=== PATIENT | female | born 1990 | race American Indian/Alaskan Native ===

== ENCOUNTER 2019-01-20 20:35 | Emergency (ER) | payer SELFPAY ==
--- NOTE | 2019-01-20 20:41 | Emergency Department Report ---
Blank Doc - Documentation Documentation: 28-year-old female that presents with n/v and abdominal pain. This initial assessment/diagnostic orders/clinical plan/treatment(s) is/are subject to change based on patient's health status, clinical progression and re- assessment by fellow clinical providers in the ED. Further treatment and workup at subsequent clinical providers discretion. Patient/guardians urged not to elope from the ED as their condition may be serious if not clinically assessed and managed. Initial orders include: 1- Patient sent to [facility] for further evaluation and treatment 2- labs 3- UA
[2019-01-20 21:32] LABS: Basophils % (Auto) 0.3 % (0.0-1.8); Eosinophils # (Auto) 0.1 K/mm3 (0.0-0.4); Eosinophils % (Auto) 2.8 % (0.0-4.3); Hemoglobin 11.3 gm/dl (10.1-14.3); Lymphocytes % (Auto) 20.2 % (13.4-35.0); Mean Corpuscular HGB Conc 32 % (30-34); Mean Corpuscular Volume 75 fl (79-97); Monocytes # (Auto) 0.6 K/mm3 (0.0-0.8); Monocytes % (Auto) 11.8 % (0.0-7.3); Platelet Count 247 K/mm3 (140-440); Red Blood Count 4.67 M/mm3 (3.65-5.03); Red Cell Distribution Width 15.1 % (13.2-15.2)
[2019-01-20 21:48] LABS: Alanine Aminotransferase 30 units/L (7-56); Albumin 3.6 g/dL (3.9-5); BUN/Creatinine Ratio 12; Blood Urea Nitrogen 7 mg/dL (7-17); Calcium 8.9 mg/dL (8.4-10.2); Hemolysis Index 8
[2019-01-20] MEDS ORDERED: NACL 0.9% 1000 ML 1,000 ML IV ONE (22:38)
[2019-01-20] MEDS ORDERED: REGLAN IV ONE (22:39)
[2019-01-20] MEDS ORDERED: BENADRYL IV ONE (22:39)
--- NOTE | 2019-01-20 23:46 | Emergency Department Report ---
ED N/V/D HPI - General Chief complaint: Abdominal Pain Stated complaint: ABDOMINAL PAIN Time Seen by Provider: 01/20/19 20:40 Source: patient Mode of arrival: Ambulatory Limitations: No Limitations - History of Present Illness Initial comments: Patient is a 28-year-old female presents the emergency room with complaints of nausea, vomiting, diarrhea that began 5 days ago. She states she has lower abdominal cramping. Patient states that she has not been able to tolerate much by mouth intake. She denies any fever, urinary symptoms, vaginal discharge, vaginal bleeding, recent camping, recent antibiotics, sick contacts. Patient states her last menstrual cycle was December 06 and she is not sure if she is . - Related Data Previous Rx's Medication Instructions Recorded Last Taken Type Clindamycin [Clindamycin CAP] 300 mg PO Q8H #21 cap 03/05/18 Unknown Rx Naproxen [Naprosyn] 500 mg PO BID #12 tablet 03/05/18 Unknown Rx traMADol [Ultram 50 MG tab] 50 mg PO Q6HR PRN #8 tablet 03/05/18 Unknown Rx Ondansetron [Zofran Odt] 4 mg PO Q8HR PRN #7 tab.rapdis 01/21/19 Unknown Rx cephALEXin [Keflex] 500 mg PO BID 7 Days #14 cap 01/21/19 Unknown Rx Allergies Allergy/AdvReac Type Severity Reaction Status Date / Time metoclopramide [From Reglan] AdvReac Unknown Verified 01/21/19 00:15 ED Review of Systems ROS: Stated complaint: ABDOMINAL PAIN Other details as noted in HPI Comment: All other systems reviewed and negative ED Past Medical Hx - Social History Smoking Status: Never Smoker Substance Use Type: None - Medications Home Medications: Home Medications Medication Instructions Recorded Confirmed Last Taken Type Clindamycin [Clindamycin CAP] 300 mg PO Q8H #21 cap 03/05/18 Unknown Rx Naproxen [Naprosyn] 500 mg PO BID #12 tablet 03/05/18 Unknown Rx traMADol [Ultram 50 MG tab] 50 mg PO Q6HR PRN #8 tablet 03/05/18 Unknown Rx Ondansetron [Zofran Odt] 4 mg PO Q8HR PRN #7 tab.rapdis 01/21/19 Unknown Rx cephALEXin [Keflex] 500 mg PO BID 7 Days #14 cap 01/21/19 Unknown Rx ED Physical Exam - General Limitations: No Limitations General appearance: alert, in no apparent distress - Head Head exam: Present: atraumatic, normocephalic - Eye Eye exam: Present: normal appearance - ENT ENT exam: Present: mucous membranes moist - Respiratory Respiratory exam: Present: normal lung sounds bilaterally. Absent: respiratory distress, wheezes, rales, rhonchi, stridor, chest wall tenderness, accessory muscle use, decreased breath sounds, prolonged expiratory - Cardiovascular Cardiovascular Exam: Present: regular rate, normal rhythm, normal heart sounds. Absent: systolic murmur, diastolic murmur, rubs, gallop - GI/Abdominal GI/Abdominal exam: Present: soft, normal bowel sounds. Absent: distended, tenderness, guarding, rebound, rigid - Back Exam Back exam: Absent: CVA tenderness (R), CVA tenderness (L) - Neurological Exam Neurological exam: Present: alert, oriented X3 - Psychiatric Psychiatric exam: Present: normal affect, normal mood - Skin Skin exam: Present: warm, dry, intact ED Course Vital Signs 01/20/19 01/21/19 20:40 02:45 Temperature 98.8 F Pulse Rate 88 68 Respiratory 18 16 Rate Blood Pressure 120/79 [Right] O2 Sat by Pulse 97 100 Oximetry ED Medical Decision Making - Lab Data Result diagrams: 01/20/19 21:15 01/20/19 21:15 Lab Results 01/20/19 01/20/19 01/20/19 Range/Units 21:15 21:15 21:15 WBC 4.9 (4.5-11.0) K/mm3 RBC 4.67 (3.65-5.03) M/mm3 Hgb 11.3 (10.1-14.3) gm/dl Hct 35.0 (30.3-42.9) % MCV 75 L (79-97) fl MCH 24 L (28-32) pg MCHC 32 (30-34) % RDW 15.1 (13.2-15.2) % Plt Count 247 (140-440) K/mm3 Lymph % (Auto) 20.2 (13.4-35.0) % [place] % (Auto) 11.8 H (0.0-7.3) % Eos % (Auto) 2.8 (0.0-4.3) % Baso % (Auto) 0.3 (0.0-1.8) % Lymph # 1.0 L (1.2-5.4) K/mm3 [place] # 0.6 (0.0-0.8) K/mm3 Eos # 0.1 (0.0-0.4) K/mm3 Baso # 0.0 (0.0-0.1) K/mm3 Seg Neutrophils % 64.9 (40.0-70.0) % Seg Neutrophils # 3.2 (1.8-7.7) K/mm3 Sodium 137 (137-145) mmol/L Potassium 4.4 (3.6-5.0) mmol/L Chloride 102.2 (98-107) mmol/L Carbon Dioxide 23 (22-30) mmol/L Anion Gap 16 mmol/L BUN 7 (7-17) mg/dL Creatinine 0.6 L (0.7-1.2) mg/dL Estimated GFR > 60 ml/min BUN/Creatinine Ratio 12 % Glucose 95 (65-100) mg/dL Calcium 8.9 (8.4-10.2) mg/dL Total Bilirubin 0.20 (0.1-1.2) mg/dL AST 29 (5-40) units/L ALT 30 (7-56) units/L Alkaline Phosphatase 112 (35-129) units/L Total Protein 6.9 (6.3-8.2) g/dL Albumin 3.6 L (3.9-5) g/dL Albumin/Globulin Ratio 1.1 % Lipase 16 (13-60) units/L HCG, Qual Positive (Negative) HCG, Quant (0-4) mIU/mL Urine Color (Yellow) Urine Turbidity (Clear) Urine pH (5.0-7.0) Ur Specific [place] (1.003-1.030) Urine Protein (Negative) mg/dL Urine Glucose (UA) (Negative) mg/dL Urine Ketones (Negative) mg/dL Urine Blood (Negative) Urine Nitrite (Negative) Urine Bilirubin (Negative) Urine Urobilinogen (<2.0) mg/dL Ur Leukocyte Esterase (Negative) Urine WBC (Auto) (0.0-6.0) /HPF Urine RBC (Auto) (0.0-6.0) /HPF U Epithel Cells (Auto) (0-13.0) /HPF Urine Bacteria (Auto) (Negative) /HPF Urine Mucus /HPF 01/20/19 01/21/19 Range/Units 21:15 01:14 WBC (4.5-11.0) K/mm3 RBC (3.65-5.03) M/mm3 Hgb (10.1-14.3) gm/dl Hct (30.3-42.9) % MCV (79-97) fl MCH (28-32) pg MCHC (30-34) % RDW (13.2-15.2) % Plt Count (140-440) K/mm3 Lymph % (Auto) (13.4-35.0) % [place] % (Auto) (0.0-7.3) % Eos % (Auto) (0.0-4.3) % Baso % (Auto) (0.0-1.8) % Lymph # (1.2-5.4) K/mm3 [place] # (0.0-0.8) K/mm3 Eos # (0.0-0.4) K/mm3 Baso # (0.0-0.1) K/mm3 Seg Neutrophils % (40.0-70.0) % Seg Neutrophils # (1.8-7.7) K/mm3 Sodium (137-145) mmol/L Potassium (3.6-5.0) mmol/L Chloride (98-107) mmol/L Carbon Dioxide (22-30) mmol/L Anion Gap mmol/L BUN (7-17) mg/dL Creatinine (0.7-1.2) mg/dL Estimated GFR ml/min BUN/Creatinine Ratio % Glucose (65-100) mg/dL Calcium (8.4-10.2) mg/dL Total Bilirubin (0.1-1.2) mg/dL AST (5-40) units/L ALT (7-56) units/L Alkaline Phosphatase (35-129) units/L Total Protein (6.3-8.2) g/dL Albumin (3.9-5) g/dL Albumin/Globulin Ratio % Lipase (13-60) units/L HCG, Qual (Negative) HCG, Quant 34342 H (0-4) mIU/mL Urine Color Yellow (Yellow) Urine Turbidity Cloudy (Clear) Urine pH 7.0 (5.0-7.0) Ur Specific [place] 1.021 (1.003-1.030) Urine Protein 30 mg/dl (Negative) mg/dL Urine Glucose (UA) Neg (Negative) mg/dL Urine Ketones Neg (Negative) mg/dL Urine Blood Neg (Negative) Urine Nitrite Neg (Negative) Urine Bilirubin Neg (Negative) Urine Urobilinogen < 2.0 (<2.0) mg/dL Ur Leukocyte Esterase Lg (Negative) Urine WBC (Auto) 65.0 H (0.0-6.0) /HPF Urine RBC (Auto) 9.0 (0.0-6.0) /HPF U Epithel Cells (Auto) 12.0 (0-13.0) /HPF Urine Bacteria (Auto) 1+ (Negative) /HPF Urine Mucus 3+ /HPF - Radiology Data Radiology results: report reviewed ULTRASOUND OBSTETRIC transabdominal Indication: preg, abd pain Findings: The patient declined endovaginal imaging. Intrauterine is identified. A yolk sac is seen in the gestational sac [place]-rump length = 0.51 cm = 6 weeks, 2 day(s). No heartbeat can be identified The ovaries are normal. There is no free fluid. Impression: Intrauterine is identified. No heartbeat could be identified on this transabdominal imaging.. This could represent demise. The patient declined endovaginal imaging which could allow for better evaluation of this very tiny fetus. In the absence of this, close short-term follow-up is recommended to better evaluate viability. Signer Name: Ranjith Cano MD Signed: 01/21/2019 12:21 AM Workstation Name: [id number] Transcribed By: SS Dictated By: Ranjith Cano MD Electronically Authenticated By: Ranjith Cano MD Signed Date/Time: 01/21/19 0021 - Medical Decision Making Patient is a 28-year-old female presents the emergency room with complaints of nausea, vomiting, diarrhea that began 5 days ago. She states she has lower abdominal cramping. Patient states that she has not been able to tolerate much by mouth intake. She denies any fever, urinary symptoms, vaginal discharge, vaginal bleeding, recent camping, recent antibiotics, sick contacts. Patient states her last menstrual cycle was December 06 and she is not sure if she is . Vitals are normal. no abd tenderness on exam. cbc and bmp are normal. electrolytes/[place] [address]. UA shows evidence of UTI, given 1g of ceftriaxone. pt given 1L of fluids, reglan/benadryl, and zofran and Nausea completely resolved and pt was able to tolerate PO intake while in the ED. pt given prescription for keflex. OB US shows: Intrauterine is identified. No heartbeat could be identified on this downing sabdominal imaging.. This could represent demise. The patient declined endovaginal imaging which could allow for better evaluation of this very tiny fetus. In the absence of this, close short-term follow-up is recommended to better evaluate viability. discussed results with pt and given US report. Advised patient to please take medication as prescribed. drink plenty of fluids. Please begin taking a daily vitamin [id number]. Follow up with an [facility] in the next 2-3 days. Return to the emergency room for any new or worsening symptoms. - Differential Diagnosis UTI, IUP, threatened miscarriage, ectopic, ovarian cyst Critical care attestation.: If time is entered above; I have spent that time in minutes in the direct care of this critically ill patient, excluding procedure time. ED Disposition Clinical Impression: Threatened miscarriage Qualifiers: Weeks of gestation: less than 8 weeks Qualified Code(s): Z3A.01 - Less than 8 weeks gestation of UTI (urinary tract infection) Qualifiers: Urinary tract infection type: acute cystitis Hematuria presence: without hematuria Qualified Code(s): N30.00 - Acute cystitis without hematuria Disposition: DC- TO HOME OR SELFCARE Is pt being admited?: No Does the pt Need Aspirin: No Condition: Stable Instructions: Threatened Miscarriage (ED), Urinary Tract Infection in Women (ED) Additional Instructions: please take medication as prescribed. drink plenty of fluids. Please begin taking a daily vitamin [id number]. Follow up with an [facility]INE OPERATOR in the next 2-3 days. Return to the emergency room for any new or worsening symptoms. Prescriptions: cephALEXin [Keflex] 500 mg PO BID 7 Days #14 cap Ondansetron [Zofran Odt] 4 mg PO Q8HR PRN #7 tab.rapdis PRN Reason: Nausea And Vomiting Referrals: [facility] [Provider Group] - 2-3 Days [facility] [Provider Group] - 2-3 Days [facility] [Provider Group] - 2-3 Days Time of Disposition: 02:09 Print Language: WELSH
[2019-01-21] MEDS ORDERED: ZOFRAN IV ONE (00:20)
[2019-01-21] MEDS ORDERED: ZOFRAN ONE (00:21)
--- NOTE | 2019-01-21 00:26 | Ultrasound Report ---
ULTRASOUND OBSTETRIC transabdominal Indication: preg, abd pain Findings: The patient declined endovaginal imaging. Intrauterine is identified. A yolk sac is seen in the gestational sac [place]-rump length = 0.51 cm = 6 weeks, 2 day(s). No heartbeat can be identified The ovaries are normal. There is no free fluid. Impression: Intrauterine is identified. No heartbeat could be identified on this transabdominal i maging.. This could represent demise. The patient declined endovaginal imaging which could allo w for better evaluation of this very tiny fetus. In the absence of this, close short-term follow-up i s recommended to better evaluate viability. Signer Name: Ranjith Cano MD Signed: 01/21/2019 12:21 AM Workstation Name: [id number]
[2019-01-21 01:30] LABS: Bacteria,Urine 1+ /HPF (Negative); Bilirubin,Urine NEG (Negative); Blood,Urine NEG (Negative); Color,Urine Yellow (Yellow); Mucus,Urine 3+ /HPF; Urobilinogen,Urine < 2.0 mg/dL (<2.0)
[2019-01-21] MEDS ORDERED: ROCEPHIN/NS 1 GM/50 ML 1 GM/50 ML BAG IV ONE (01:46)
[2019-01-21 02:45] VITALS: BP 120/79
== END 2019-01-21 02:45 | disposition home or self-care (01) ==
LOC: ED 20:35
DX: O20.0 Threatened abortion (principal); O23.41 Unspecified infection of urinary tract in pregnancy, first trimester; Z79.899 Other long term (current) drug therapy; Z88.8 Allergy status to other drugs, medicaments and biological substances; Z3A.01 Less than 8 weeks gestation of pregnancy
CPT/HCPCS: 36415; 76801; 80053; 81001; 83690; 84702; 84703; 85025; 87086; 96361; 96365; 96375; 99284; J0696; J1200; J2405; J2765; J7030

== ENCOUNTER 2020-04-10 18:05 | Emergency (ER) | payer MEDICAID ==
[2020-04-10 18:38] VITALS: BP 175/102
--- NOTE | 2020-04-10 20:54 | Emergency Department Report ---
Chief Complaint: Headache Stated Complaint: BODY CHILLS Time Seen by Provider: 04/10/20 20:48 - HPI History of Present Illness: Patient is a 30-year-old female presents emergency room complaints of generalized body aches that began yesterday. She has associated chills, subjective fever, occasional dry cough, rhinorrhea. She denies any vomiting, diarrhea, shortness of breath, chest pain, abdominal pain. She states that a coworker at work did test positive for COVID-19. She denies any recent travel. She states that she works at the [employer]. No past medical history. No allergies to medications. Last menstrual cycle 03/16/2020. She denies possibility of . Vitals are stable No hypoxia, no tachycardia, no fever On exam: Non toxic appearing, no acute distress atraumatic, normocephalic normal appearance of the eyes, PERRL, EOMI, no periorbital edema or ecchymosis moist mucus membranes, normal oropharynx, normal TMs and canals bilaterally, no sinus tenderness palpation bilaterally regular heart rate and rhythm, no gallops, no rubs, no murmurs breath sounds are clear bilaterally, no w/r/r, no stridor, no respiratory distress, no accessory muscle use A&O x4, no focal neuro deficit skin is warm, dry, intact Symptoms appear most consistent with viral URI She has no clinical signs or symptoms of bacterial pneumonia or bacterial bronchitis She has no clinical signs or symptoms of dehydration Patient is presenting with the symptoms during COVID-19 pandemic and has had a sick contact, discussed the possibility of COVID-19 with patient, discuss strict return precautions, discussed outpatient testing, discussed self quarantine Patient does not meet hospital criteria for hospital admission or for hospital COVID-19 testing Discussed supportive care and symptomatic treatment with patient Discussed very strict return precautions in detail with patient Patient given appropriate resources Medical screening examination performed and there is no threat to life or limb at this time - Exam Vital Signs: Vital Signs 04/10/20 18:38 Temperature 98.3 F Pulse Rate 67 Respiratory 18 Rate Blood Pressure 175/102 [Right] O2 Sat by Pulse 100 Oximetry MSE screening note: Focused history and physical exam performed. Due to findings the following was ordered: ED Disposition for MSE Clinical Impression: Viral URI Disposition: MED SCREENING EXAM-LEFT Is pt being admited?: No Does the pt Need Aspirin: No Condition: Stable Instructions: Viral Respiratory Infection, [id number] Additional Instructions: Please increase your fluid intake over the next several days. May take Tylenol as needed for fever or body aches. May take [id number] cold symptom relief medication such as Mucinex or TheraFlu. Follow-up with a primary care doctor for reexamination. Return to emergency room immediately for any new or worsening symptoms including but not limited to difficulty breathing, shortness of breath, severe chest pain, unable to tolerate by mouth intake, etc. Please self quarantine for 10 days from the onset of your symptoms. Please do not go out in public. If you are around others at home please wear a mask. If you need to cough or sneeze please do so in a napkin and immediately throw it away and immediately wash your hands. Wash your hands frequently. Wipe everything down. Recommend for you to get COVID-19 testing, may have this done at primary care doctor, health department, [facility] testing center. Referrals: MARI GAMEZ MD [Staff Physician] - 2-3 Days [facility] [Provider Group] - 2-3 Days Forms: Work/School Release Form(ED) Time of Disposition: 20:50 Print Language: CYPRIOT
== END 2020-04-10 21:48 | disposition left against medical advice (07) ==
LOC: ED 18:05
DX: J06.9 Acute upper respiratory infection, unspecified (principal); B34.9 Viral infection, unspecified; Z88.8 Allergy status to other drugs, medicaments and biological substances; Z53.21 Procedure and treatment not carried out due to patient leaving prior to being seen by health care provider